=== PATIENT | female | born 1995 | race African-American/Black ===

== ENCOUNTER 2024-09-05 03:47 | Emergency (ER) | payer MEDICAID, OTHER ==
[~2024-09-05] VITALS: Ht 170.2 cm; Wt 98.0 kg
[2024-09-05 03:56] VITALS: TEMP 98.4; O2SAT 100
[2024-09-05 06:32] VITALS: BP 136/80; PULSE 88; RESP 18
[2024-09-05] MEDS: MORPHINE SULFATE 4 MG/ML INJ (FOR IV/IM USE) IM ONE (06:32)
== END 2024-09-05 05:52 | disposition left against medical advice (07) ==
LOC: ER 03:47
DX: M25.511 Pain in right shoulder (principal); E03.9 Hypothyroidism, unspecified; Z88.5 Allergy status to narcotic agent; Z88.6 Allergy status to analgesic agent
CPT/HCPCS: 81025; 73030; 96372; 99283; J2270; Z7610

== ENCOUNTER 2024-10-10 23:46 | Emergency (ER) | payer BC, OTHER ==
[~2024-10-10] VITALS: Ht 170.2 cm; Wt 210.0 kg
[2024-10-10 23:51] VITALS: O2SAT 100
[2024-10-10 23:52] VITALS: BP 131/80; PULSE 87; RESP 18; TEMP 36.8; O2SAT 100
[2024-10-11] MEDS ORDERED: LIDO700A15 TP (01:07)
== END 2024-10-11 01:20 | disposition home or self-care (01) ==
LOC: ER 23:46
DX: M25.511 Pain in right shoulder (principal); Z88.5 Allergy status to narcotic agent; Z88.6 Allergy status to analgesic agent; Z90.49 Acquired absence of other specified parts of digestive tract; W19.XXXA Unspecified fall, initial encounter; Y93.89 Activity, other specified; Y92.89 Other specified places as the place of occurrence of the external cause; Y99.8 Other external cause status
CPT/HCPCS: 73030; 99283